=== PATIENT | female | born 1980 | race Two or more races ===

== ENCOUNTER 2017-04-08 17:12 | Emergency (ER) | payer MEDICAID ==
[~2017-04-08] VITALS: Ht 160 cm; Wt 58.1 kg
[2017-04-08 18:40] VITALS: BP 126/82
== END 2017-04-08 21:12 | disposition home or self-care (01) ==
LOC: ER 17:14
DX: S92.902A Unspecified fracture of left foot, initial encounter for closed fracture (principal); W17.89XA Other fall from one level to another, initial encounter; Y93.89 Activity, other specified; Y99.8 Other external cause status; Y92.149 Unspecified place in prison as the place of occurrence of the external cause

== ENCOUNTER 2019-12-09 12:35 | Emergency (ER) | payer MEDICAID ==
[~2019-12-09] VITALS: Ht 154.9 cm; Wt 65.3 kg
[2019-12-09 12:46] VITALS: BP 146/100
== END 2019-12-09 13:49 | disposition home or self-care (01) ==
LOC: ER 12:36
DX: M25.561 Pain in right knee (principal)
CPT/HCPCS: 73562

== ENCOUNTER → 2024-08-01 | Outpatient (CLI) | payer MEDICAID ==
[2024-08-01 16:30] LABS: Urine Bacteria None Seen /hpf (None Seen)
[2024-08-01 16:40] LABS: Basophils # (auto) 0.1 10 ^3/uL (0-0.2); Basophils % (auto) 0.8 % (0.0-2.0); Eosinophils # (auto) 0.4 10 ^3/uL (0-0.8); Eosinophils % (auto) 6.8 % (0.0-7.0); Hematocrit 36.7 % (36.0-46.0); Hemoglobin 12.4 g/dL (12.2-16.2); Lymphocytes # (auto) 2.2 10 ^3/uL (0.4-5.4); Lymphocytes % (auto) 34.3 % (10.0-50.0); Mean Corpuscular Hgb Conc. 33.7 g/dL (32.0-36.0); Mean Corpuscular Volume 85.9 fL (80.0-100.0); Monocytes # (auto) 0.5 10 ^3/uL (0-1.3); Monocytes % (auto) 7.7 % (0.0-12.0); Neutrophils # (auto) 3.3 10 ^3/uL (1.6-8.6); Neutrophils % (auto) 50.4 % (37.0-80.0); Platelet Count (auto) 298 10^3/uL (140-450); Red Blood Cells 4.27 10^6/uL (4.0-5.20); Red Cell Distribution Width 13.2 % (11.8-14.3); White Blood Cell 6.5 10^3/uL (4.4-10.8)
[2024-08-01 16:45] LABS: Urine Blood Negative /uL (Negative); Urine Clarity Clear (Clear); Urine Color Light-Yellow (Yellow); Urine Protein, UAD TRACE (Negative); Urine Specific Gravity 1.025 (1.001-1.035); Urine Urobilinogen Normal (Negative); Urine WBC <1 /hpf (0 - 5)
[2024-08-01 16:57] LABS: Alanine Aminotransferase 18 U/L (7-40); Albumin 4.3 g/dL (3.2-4.8); Alkaline Phosphatase 56 U/L (46-116); Anion Gap 8 (5-15); Aspartate Aminotransferase 15 U/L (13-40); BUN/Creatinine Ratio 14.3 (10.0-20.0); Bilirubin, Total 0.2 mg/dL (0.2-1.0); Blood Urea Nitrogen 11 mg/dL (9-23); Calcium 9.1 mg/dL (8.7-10.4); Carbon Dioxide 25 mmol/L (20-31); Chloride 106 mmol/L (98-107); Glucose 111 mg/dL (74-106); Potassium 3.7 mmol/L (3.5-5.1); Sodium 139 mmol/L (136-145)
== END | disposition home or self-care (01) ==
LOC: LAB 16:11
DX: R73.02 Impaired glucose tolerance (oral) (principal); E55.9 Vitamin D deficiency, unspecified; E78.5 Hyperlipidemia, unspecified
CPT/HCPCS: 36415; 80053; 81001; 82306; 83036; 85025

== ENCOUNTER 2024-12-25 10:22 | Emergency (ER) | payer MEDICAID ==
[~2024-12-25] VITALS: Ht 154.9 cm; Wt 67.3 kg
[2024-12-25] MEDS: ONDANSETRON HCL 4 MG/2 ML VIAL IV ONE (11:10)
[2024-12-25 11:11] VITALS: PULSE 64; RESP 16; O2SAT 97
[2024-12-25] MEDS: KETOROLAC TROMETH 30 MG/ML 1ML VIAL IV ONE (11:11)
[2024-12-25 11:21] LABS: Basophils # (auto) 0.1 10 ^3/uL (0-0.2); Eosinophils # (auto) 0.4 10 ^3/uL (0-0.8); Eosinophils % (auto) 7.5 % (0.0-7.0); Hematocrit 40.9 % (36.0-46.0); Hemoglobin 13.6 g/dL (12.2-16.2); Lymphocytes # (auto) 1.8 10 ^3/uL (0.4-5.4); Lymphocytes % (auto) 33.6 % (10.0-50.0); Mean Corpuscular Hemoglobin 28.5 pg (28.0-32.0); Mean Corpuscular Hgb Conc. 33.4 g/dL (32.0-36.0); Mean Corpuscular Volume 85.4 fL (80.0-100.0); Monocytes # (auto) 0.5 10 ^3/uL (0-1.3); Monocytes % (auto) 8.7 % (0.0-12.0); Neutrophils # (auto) 2.6 10 ^3/uL (1.6-8.6); Neutrophils % (auto) 49.2 % (37.0-80.0); Nucleated Red Blood Cells % 0.1 %; Platelet Count (auto) 403 10^3/uL (140-450); Red Blood Cells 4.79 10^6/uL (4.0-5.20); Red Cell Distribution Width 13.4 % (11.8-14.3); White Blood Cell 5.2 10^3/uL (4.4-10.8)
[2024-12-25 11:26] LABS: Urine Bacteria FEW /hpf (None Seen); Urine Blood 3+ /uL (Negative); Urine Clarity Clear (Clear); Urine Color Light-Brown (Yellow); Urine Protein, UAD TRACE (Negative); Urine Specific Gravity 1.008 (1.001-1.035); Urine Squamous Epithelial Cell FEW /hpf (<5); Urine Urobilinogen Normal (Negative); Urine WBC 9 /HPF (0-5); Urine pH 5.5 (5.0-9.0)
--- NOTE | 2024-12-25 11:28 | ED.PDOC ---
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 Patient reports a pressure sensation at pain sites, states feeling a bump in her left pelvic region. Patient mentions a variety of events these past couple of days that worsened her pelvic pain such as feeling a popping sensation to pelvic region after straining due to constipation, picking up light boxes at work, and severe left lower quadrant pain when moving a tampon. Patient reports a regular menstrual cycle except this month in which cycle came late, started yesterday. Patient was on NuvaRing but is no longer on this control. Patient reports possibly but has not taken any test yet but reports abdominal discomfort is similar to feeling . She denies any fever, chills, dysuria, blood clotting. No medical, surgical history or allergies reported. Chief Complaint: Pelvic Pain Time Seen by MD: 10:41 Reviewed Notes: Nurses Notes, Medications, Allergies Allergies: Coded Allergies: NO KNOWN ALLERGIES (Unverified , 12/07/15) Home Meds Active Scripts Dicyclomine Hcl (BENTYL CAPSULE) 10 Mg Cp, 2 CAP PO Q6HP PRN, #30 CAP 11 Refills prn abdominal pain Prov:LEILA ROLLINS MD 12/25/24 Omeprazole Magnesium (Omeprazole) 20 Mg Tab, 20 MG PO DAILY, #30 TAB Prov:LEILA ROLLINS MD 12/25/24 Ibuprofen Micronized (Ibuprofen) 800 Mg Tab, 800 MG PO Q8HP PRN, #30 TAB prn pain or fever, take with food Prov:LEILA ROLLINS MD 12/25/24 Metronidazole (Flagyl) 500 Mg Tab, 1 TAB PO TID for 10 Days, #30 TAB Prov:LEILA ROLLINS MD 12/25/24 Amoxicillin & Pot Clavulanate (AUGMENTIN TABLET) 875 Mg Tb, 875 MG PO BID for 10 Days, #20 TAB Prov:LEILA ROLLINS MD 12/25/24 Information Source: Patient Mode of Arrival: Ambulatory Timing: Weeks (1) Severity: Moderate Vaginal Discharge: None Vaginal Lesions: None Vaginal Mass: Painful Onset Of Mass/Bleeding: Spontaneous Sexual Activity: Sexually Active Last Consensual [place]: None Control: None Symptoms of Possible : Feels , Nausea Associated Signs and Symptoms: N/V (nausea only ), Other (left sided pelvic pain ) Past Medical History PAST MEDICAL HISTORY: Denies Surgical History: Denies all surgeries TOOL CRIB MANAGER History: No Pertinent TOOL CRIB MANAGER History LMP 12/24/24 Family History Family History: Unknown Social History Smoker: Non-Smoker Alcohol: Denies ETOH Use Drugs: Denies Drug Use Lives In: Home Constitutional: denies: chills, diaphoresis, fatigue, fever, malaise, sweats, weakness, others EENTM: denies: blurred vision, double vision, ear bleeding, ear discharge, ear drainage, ear pain, ear ringing, eye pain, eye redness, hearing loss, mouth pain, mouth swelling, nasal discharge, nose bleeding, nose congestion, nose pain, photophobia, tearing, throat pain, throat swelling, voice changes, others Respiratory: denies: cough, hemoptysis, orthopnea, SOB at rest, shortness of breath, SOB with excertion, stridor, wheezing, others Cardiovascular: denies: chest pain, dizzy spells, diaphoresis, Dyspnea on exertion, edema, irregular heart beat, left arm pain, lightheadedness, palpitations, PND, syncope, others Gastrointestinal: reports: nausea; denies: abdomen distended, abdominal pain, blood streaked bowels, constipated, diarrhea, dysphagia, difficulty swallowing, hematemesis, melena, poor appetite, poor fluid intake, rectal bleeding, rectal pain, vomiting, others Genitourinary: reports: pain (pelvic ); denies: abnormal vagina bleeding, burning, dyspareunia, dysuria, flank pain, frequency, hematuria, incontinence, , vagina discharge, urgency, others Neurological: denies: dizziness, fainting, headache, left sided numbness, left sided weakness, numbness, paresthesia, pre-existing deficit, right sided numbness, right sided weakness, seizure, speech problems, tingling, tremors, weakness, others Musculoskeletal: reports: back pain; denies: gout, joint pain, joint swelling, muscle pain, muscle stiffness, neck pain, others Integumetry: denies: bruises, change in color, change in hair/nails, dryness, laceration, lesions, lumps, rash, wounds, others Allergic/Immunocompromised: denies: Difficulty Healing, Frequent Infections, Hives, Itching, others Hematologic/Lymphatic: denies: anemia, blood clots, easy bleeding, easy bruising, swollen glands, others Endocrine: denies: excessive hunger, excessive sweating, excessive thirst, excessive urination, flushing, intolerance to cold, intolerance to heat, unexplained weight gain, unexplained weight loss, others Psychiatric: denies: anxiety, bipolar disorder, depression, hopeless, panic disorder, schizophrenia, sleepless, suicidal, others All Other Systems: Reviewed and Negative Physical Exam General Appearance: No Apparent Distress HEENT: PERRL/EOMI Neck: Full Range of Motion, Normal Inspection Respiratory: Lungs Clear, No Accessory Muscle Use, No Respiratory Distress, Normal Breath Sounds Cardiovascular: No Edema, No JVD, Regular Rate/Rhythm Breast Exam: Deferred Gastrointestinal: LLQ, Soft, Tenderness Genitalia: Deferred Pelvic: Deferred Rectal: Deferred Extremities: Normal inspection, Normal range of motion, Non-tender, No pedal edema Neurologic: Alert (Oriented x4), Normal Affect, Normal Mood, Other (Ambulatory. No gross focal deficit.) Cerebellar Function: NOT DONE Reflexes: NOT DONE Skin: Dry, Normal Color, Warm Lymphatic: NOT DONE Was a procedure done? Was a procedure done?: No Differential Diagnosis (TOOL CRIB MANAGER) Vaginal Bleeding: - Incomplete, - Inevitable, - Missed, - Threatened, Cervicitis, Ectopic , Menstrual Bleeding, PID, UTI, Vaginitis Comments Constipation, UTI, diverticulitis, colitis, kidney stone, among others X-Ray, Labs, Meds, VS Vital Signs Date Time Temp Pulse Resp B/P (MAP) Pulse Ox O2 Delivery O2 Flow Rate FiO2 12/25/24 11:11 64 16 97 Room Air* 0 21 12/25/24 11:03 64 15 97 Room Air 12/25/24 11:03 98.0 64 15 127/71 (89) 97 98.0 12/25/24 10:32 98.6 62 16 133/66 (88) 96 Lab Test 12/25/24 11:02 12/25/24 10:41 Range/Units White Blood Count 5.2 4.4-10.8 10^3/uL Red Blood Count 4.79 4.0-5.20 10^6/uL Hemoglobin 13.6 12.2-16.2 g/dL Hematocrit 40.9 36.0-46.0 % Mean Corpuscular Volume 85.4 80.0-100.0 fL Mean Corpuscular Hemoglobin 28.5 28.0-32.0 pg Mean Corpuscular Hemoglobin Concent 33.4 32.0-36.0 g/dL Red Cell Distribution Width 13.4 11.8-14.3 % Platelet Count 403 140-450 10^3/uL Mean Platelet Volume 6.3 L 6.9-10.8 fL Neutrophils (%) (Auto) 49.2 37.0-80.0 % Lymphocytes (%) (Auto) 33.6 10.0-50.0 % Monocytes (%) (Auto) 8.7 0.0-12.0 % Eosinophils (%) (Auto) 7.5 H 0.0-7.0 % Basophils (%) (Auto) 1.0 0.0-2.0 % Neutrophils # (Auto) 2.6 1.6-8.6 10 ^3/uL Lymphocytes # (Auto) 1.8 0.4-5.4 10 ^3/uL Monocytes # (Auto) 0.5 0-1.3 10 ^3/uL Eosinophils # (Auto) 0.4 0-0.8 10 ^3/uL Basophils # (Auto) 0.1 0-0.2 10 ^3/uL Nucleated Red Blood Cells 0.1 % Sodium Level 138 136-145 mmol/L Potassium Level 3.7 3.5-5.1 mmol/L Chloride Level 106 98-107 mmol/L Carbon Dioxide Level 23 20-31 mmol/L Anion Gap 9 5-15 Blood Urea Nitrogen 14 9-23 mg/dL Creatinine 0.75 0.550-1.02 mg/dL Glomerular Filtration Rate Calc 99 >90 mL/min BUN/Creatinine Ratio 18.7 10.0-20.0 Serum Glucose 91 74-106 mg/dL Calcium Level 9.2 8.7-10.4 mg/dL Beta HCG, Quantitative 0.1 L 1.5-4.2 mIU/mL Urine Color Light-brown Yellow Urine Clarity Clear Clear Urine pH 5.5 5.0-9.0 Urine Specific [place] 1.008 1.001-1.035 Urine Protein Trace H Negative Urine Ketones Negative Negative Urine Blood 3+ H Negative /uL Urine Nitrite Negative Negative Urine Bilirubin Negative Negative Urine Urobilinogen Normal Negative mg/dL Urine Leukocyte Esterase Negative Negative /uL Urine RBC 541 0 - 4 /hpf Urine Microscopic WBC 9 H 0-5 /HPF Urine Squamous Epithelial Cells Few <5 /hpf Urine Bacteria Few H None Seen /hpf Urine Glucose Normal Normal mg/dL Current Medications Medications (Trade) Dose Ordered Sig/Sahnice Route Start Time Stop Time Status Last Admin Ketorolac Tromethamine (Toradol Injection) 30 mg ONCE ONCE IV 12/25/24 11:00 12/25/24 11:01 DC 12/25/24 11:11 Ondansetron HCl (Zofran) 4 mg ONCE ONCE IV 12/25/24 11:00 12/25/24 11:01 DC 12/25/24 11:10 [place] [address] Ph: [phone] DIAGNOSTIC IMAGING Diagnostic Imaging Report : [id number] Signed PATIENT: THOMAS PEREZ ACCT: [id number] UNIT: [id number] : 1980 LOC: ER ROOM / BED: / AGE / SEX: 44 / F ADM STATUS: REG ER SERVICE 1053 ORDERING PHYSICIAN: LEILA ROLLINS MD PROCEDURE(s): PELUS - PELVIC REASON: L pelvic pain r/o ov cyst/torsion ORDER NUMBER(s): [id number], ACCESSION NUMBER(s): [id number] EXAM: US PELVIC HISTORY: L pelvic pain r/o ov cyst/torsion COMPARISON: None TECHNIQUE: Transabdominal pelvic ultrasound examination was performed. FINDINGS: The uterus measures 8.9 x 4.0 x 4.8 cm. The uterus is anteverted. The endometrium measures 7.4 mm in thickness. The right ovary measures 2.4 x 2.0 x 1.3 cm. The left ovary measures 2.5 x 2.0 x 1.5 cm. Both ovaries are normal in appearance and demonstrate normal color Doppler blood flow. No free fluid is identified in the pelvis. IMPRESSION: Normal sonographic appearance of the uterus and ovaries. ATED BY: SEBASTIAN HERNANDEZ MD DICTATED DATE/TIME: 12/25/24 1141 SIGNED BY: SEBASTIAN HERNANDEZ MD SIGNED DATE/TIME: 12/25/24 1141 CC: PROCEDURE(s): ABPL - CT AB PEL WO CON-NO ORAL OR IV REASON: LLQ pain ORDER NUMBER(s): [id number], ACCESSION NUMBER(s): [id number] Exam: CT CT AB PEL WO CON-NO ORAL OR IV History: LLQ pain Comparison Study: Pelvic ultrasound 12/25/2024 Technique: Multidetector spiral CT of the abdomen was performed from lung bases to pubic symphysis. Imaging was performed without IV contrast. Axial, coronal and sagittal multiplanar reformats were obtained from the axial data set by the technologist. Radiation Dose : 1. Abdomen/Pelvis: CTDIvol 7.21 mGy, DLP 360.81 mGy*cm. Findings: Evaluation of solid organs is limited due to lack of intravenous contrast use. Lung Bases: No acute or significant lung base finding. Normal heart size. No pleural or pericardial effusion. Liver: The liver is normal in size. No focal lesions. Gallbladder and Biliary Tree: Unremarkable Spleen: Unremarkable Pancreas: The pancreas is grossly normal in appearance. Adrenal Glands: 1.2 cm left adrenal nodule that attenuates at -16 Hounsfield units, consistent with an adenoma. Kidneys: Kidneys are grossly normal without calculi or hydronephrosis. Bladder: Grossly unremarkable for degree of distention. Bowel: Wall thickening in the stomach is likely due to poor distention. Small bowel and colon are normal in caliber and distribution. There is wall thickening in the sigmoid colon and rectum. Normal appendix is visualized in the right lower quadrant without findings of appendicitis. Ascites: Absent Lymphadenopathy: No mesenteric, retroperitoneal or periportal lymphadenopathy. Abdominal Wall and Mesentery: Unremarkable. Vasculature: The visualized abdominal aorta is normal in size and caliber. Evaluation of abdominal and pelvic vessels is limited due to lack of intravenous contrast. Pelvic Organs: There is poorly defined hypodensity in the region of the cervix which is favored to represent beam hardening artifact due to an external m etallic density anterior to the pelvis. Uterus is otherwise unremarkable. Minimal gas in the vagina. Musculoskeletal: No aggressive focal bony lesions, acute fractures or dislocation. Mild degenerative disc change and disc vacuum phenomenon at L5-S1. IMPRESSION: Evaluation is limited due to lack of intravenous contrast. Wall thickening in the sigmoid colon and rectum could be due to poor distention or colitis/proctitis. No significant diverticular disease. Small left adrenal adenoma. Appendix is normal. No bowel obstruction. No evidence of renal calculi or hydronephrosis. Radiation optimization: All CT scans at this facility use at least one of these dose optimization techniques: automated exposure control mA and/or kV adjustment per patient size (includes targeted exams where dose is matched to clinical indication) or iterative reconstruction. X-Ray, Labs, Meds, VS Comment 44-year-old female with no significant past medical history complaining of left lower quadrant abdominal/pelvic pain Vitals unremarkable Exam remarkable for left lower quadrant tenderness to palpation. Nontender to percussion. No rebound or guarding. Rhythm strip independently interpreted by me: Sinus rhythm, rate 62, no ectopy. Pelvic ultrasound: IMPRESSION: Normal sonographic appearance of the uterus and ovaries. CT abdomen and pelvis IMPRESSION: Evaluation is limited due to lack of intravenous contrast. Wall thickening in the sigmoid colon and rectum could be due to poor distention or colitis/proctitis. No significant diverticular disease. Small left adrenal adenoma. Appendix is normal. No bowel obstruction. No evidence of renal calculi or hydronephrosis. CBC, metabolic panel, hCG unremarkable for any abnormality of acute significance UA abnormal consistent with possible UTI Patient treated with the following in the ED: Toradol 30 mg IV, Zofran 4 mg IV, Rocephin 1 g IV, Flagyl 500 mg IV On re-evaluation, patient states pain has improved. Vitals are stable. Repeat abdominal exam is benign. Hospitalization was considered, however patient had rapid improvement of symptoms with treatment in the ED, and patient stated she did not want to be hospitalized and would prefer to go home with oral antibiotics and follow-up with her primary physician. She appears stable for discharge with close follow-up with her primary doctor. Rx Augmentin, Flagyl, ibuprofen, Bentyl, omeprazole Time of 1ST Reevaluation: 11:19 Reevaluation 1ST: Unchanged Time of 2ND Reevaluation: 12:53 Reevaluation 2ND: Improved Patient Education/Counseling: Diagnosis, Treatment, Prognosis Family Education/Counseling: No Family Present Departure 1 Departure Time of Disposition: 12:54 Impression: Primary Impression: Proctocolitis Disposition: HOME / SELF CARE / HOMELESS Condition: Stable Additional Instructions: Your blood tests were unremarkable. Your CT scan showed colitis/proctitis, which is inflammation of your intestine, usually due to an infection. CT report is below. I have prescribed pain medication and antibiotics. Follow-up with your primary doctor in 1-2 days. Return to ER for fever or persistent/worsening symptoms. [place] [address] Ph: [phone] DIAGNOSTIC IMAGING Diagnostic Imaging Report : [id number] Signed PATIENT: THOMAS PEREZ ACCT: [id number] UNIT: [id number] : 1980 LOC: ER ROOM / BED: / AGE / SEX: 44 / F ADM STATUS: REG ER SERVICE 1053 ORDERING PHYSICIAN: LEILA ROLLINS MD PROCEDURE(s): ABPL - CT AB PEL WO CON-NO ORAL OR IV REASON: LLQ pain ORDER NUMBER(s): [id number], ACCESSION NUMBER(s): [id number] Exam: CT CT AB PEL WO CON-NO ORAL OR IV History: LLQ pain Comparison Study: Pelvic ultrasound 12/25/2024 Technique: Multidetector spiral CT of the abdomen was performed from lung bases to pubic symphysis. Imaging was performed without IV contrast. Axial, coronal and sagittal multiplanar reformats were obtained from the axial data set by the technologist. Radiation Dose : 1. Abdomen/Pelvis: CTDIvol 7.21 mGy, DLP 360.81 mGy*cm. Findings: Evaluation of solid organs is limited due to lack of intravenous contrast use. Lung Bases: No acute or significant lung base finding. Normal heart size. No pleural or pericardial effusion. Liver: The liver is normal in size. No focal lesions. Gallbladder and Biliary Tree: Unremarkable Spleen: Unremarkable Pancreas: The pancreas is grossly normal in appearance. Adrenal Glands: 1.2 cm left adrenal nodule that attenuates at -16 Hounsfield un its, consistent with an adenoma. Kidneys: Kidneys are grossly normal without calculi or hydronephrosis. Bladder: Grossly unremarkable for degree of distention. Bowel: Wall thickening in the stomach is likely due to poor distention. Small bowel and colon are normal in caliber and distribution. There is wall thickening in the sigmoid colon and rectum. Normal appendix is visualized in the right lower quadrant without findings of appendicitis. Ascites: Absent Lymphadenopathy: No mesenteric, retroperitoneal or periportal lymphadenopathy. Abdominal Wall and Mesentery: Unremarkable. Vasculature: The visualized abdominal aorta is normal in size and caliber. Evaluation of abdominal and pelvic vessels is limited due to lack of intravenous contrast. Pelvic Organs: There is poorly defined hypodensity in the region of the cervix which is favored to represent beam hardening artifact due to an external metallic density anterior to the pelvis. Uterus is otherwise unremarkable. Minimal gas in the vagina. Musculoskeletal: No aggressive focal bony lesions, acute fractures or dislocation. Mild degenerative disc change and disc vacuum phenomenon at L5-S1. IMPRESSION: Evaluation is limited due to lack of intravenous contrast. Wall thickening in the sigmoid colon and rectum could be due to poor distention or colitis/proctitis. No significant diverticular disease. Small left adrenal adenoma. Appendix is normal. No bowel obstruction. No evidence of renal calculi or hydronephrosis. Radiation optimization: All CT scans at this facility use at least one of these dose optimization techniques: automated exposure control mA and/or kV adjus tment per patient size (includes targeted exams where dose is matched to clinical indication) or iterative reconstruction. ATED BY: LUIS ANTONIO ALEXANDRA DO DICTATED DATE/TIME: 12/25/24 1241 e-Prescriptions Dicyclomine Hcl (BENTYL CAPSULE) 10 Mg Cp 2 CAP PO Q6HP PRN, #30 CAP 11 Refills prn abdominal pain Prov: LEILA ROLLINS MD 12/25/24 Omeprazole Magnesium (Omeprazole) 20 Mg Tab 20 MG PO DAILY, #30 TAB Prov: LEILA ROLLINS MD 12/25/24 Ibuprofen Micronized (Ibuprofen) 800 Mg Tab 800 MG PO Q8HP PRN, #30 TAB prn pain or fever, take with food Prov: LEILA ROLLINS MD 12/25/24 Metronidazole (Flagyl) 500 Mg Tab 1 TAB PO TID for 10 Days, #30 TAB Prov: LEILA ROLLINS MD 12/25/24 Amoxicillin & Pot Clavulanate (AUGMENTIN TABLET) 875 Mg Tb 875 MG PO BID for 10 Days, #20 TAB Prov: LEILA ROLLINS MD 12/25/24 Discharged With: Self Comments OFF WORK x 1 WEEK Critical Care Note Critical Care Time?: No Stability Stability form required: No Heart Score Heart Score: Heart Score Response (Comments) Value History N/A 0 EKG N/A 0 Age N/A 0 Risk Factors N/A 0 Troponin N/A 0 Total 0 I personally scribed for LEILA ROLLINS MD ([email or web address]) on 12/25/24 at 11:28. Electronically submitted by Jahaira Kelly ([facility]). I personally scribed for LEILA ROLLINS MD ([email or web address]) on 12/25/24 at 11:52. Electronically submitted by Jahaira Kelly ([facility]). LEILA ROLLINS MD Dec 25, 2024 11:28
[2024-12-25 11:31] LABS: Chloride 106 mmol/L (98-107); Potassium 3.7 mmol/L (3.5-5.1); Sodium 138 mmol/L (136-145)
[2024-12-25 11:32] LABS: Anion Gap 9 (5-15); Calcium 9.2 mg/dL (8.7-10.4); Carbon Dioxide 23 mmol/L (20-31)
[2024-12-25 11:37] LABS: BUN/Creatinine Ratio 18.7 (10.0-20.0); Blood Urea Nitrogen 14 mg/dL (9-23); Glucose 91 mg/dL (74-106)
--- NOTE | 2024-12-25 11:44 | DVH ---
EXAM: US PELVIC HISTORY: L pelvic pain r/o ov cyst/torsion COMPARISON: None TECHNIQUE: Transabdominal pelvic ultrasound examination was performed. FINDINGS: The uterus measures 8.9 x 4.0 x 4.8 cm. The uterus is anteverted. The endometrium measures 7.4 mm in thickness. The right ovary measures 2.4 x 2.0 x 1.3 cm. The left ovary measures 2.5 x 2.0 x 1.5 cm. Both ovaries are normal in appearance and demonstrate normal color Doppler blood flow. No free flu id is identified in the pelvis. IMPRESSION: Normal sonographic appearance of the uterus and ovaries.
--- NOTE | 2024-12-25 12:44 | DVH ---
Exam: CT CT AB PEL WO CON-NO ORAL OR IV History: LLQ pain Comparison Study: Pelvic ultrasound 12/25/2024 Technique: Multidetector spiral CT of the abdomen was performed from lung bases to pubic symphysis. Imaging was performed without IV contrast. Axial, coronal and sagittal multiplanar reformats were ob tained from the axial data set by the technologist. Radiation Dose : 1. Abdomen/Pelvis: CTDIvol 7.21 mGy, DLP 360.81 mGy*cm. Findings: Evaluation of solid organs is limited due to lack of intravenous contrast use. Lung Bases: No acute or significant lung base finding. Normal heart size. No pleural or pericardial effusion. Liver: The liver is normal in size. No focal lesions. Gallbladder and Biliary Tree: Unremarkable Spleen: Unremarkable Pancreas: The pancreas is grossly normal in appearance. Adrenal Glands: 1.2 cm left adrenal nodule that attenuates at -16 Hounsfield units, consistent with a n adenoma. Kidneys: Kidneys are grossly normal without calculi or hydronephrosis. Bladder: Grossly unremarkable for degree of distention. Bowel: Wall thickening in the stomach is likely due to poor distention. Small bowel and colon are nor mal in caliber and distribution. There is wall thickening in the sigmoid colon and rectum. Normal marilyn endix is visualized in the right lower quadrant without findings of appendicitis. Ascites: Absent Lymphadenopathy: No mesenteric, retroperitoneal or periportal lymphadenopathy. Abdominal Wall and Mesentery: Unremarkable. Vasculature: The visualized abdominal aorta is normal in size and caliber. Evaluation of abdominal a nd pelvic vessels is limited due to lack of intravenous contrast. Pelvic Organs: There is poorly defined hypodensity in the region of the cervix which is favored to re present beam hardening artifact due to an external metallic density anterior to the pelvis. Uterus is otherwise unremarkable. Minimal gas in the vagina. Musculoskeletal: No aggressive focal bony lesions, acute fractures or dislocation. Mild degenerative disc change and disc vacuum phenomenon at L5-S1. IMPRESSION: Evaluation is limited due to lack of intravenous contrast. Wall thickening in the sigmoid colon and rectum could be due to poor distention or colitis/proctitis. No significant diverticular disease. Small left adrenal adenoma. Appendix is normal. No bowel obstruction. No evidence of renal calculi or hydronephrosis. Radiation optimization: All CT scans at this facility use at least one of these dose optimization dari hniques: automated exposure control mA and/or kV adjustment per patient size (includes targeted exam s where dose is matched to clinical indication) or iterative reconstruction.
[2024-12-25] MEDS ORDERED: OMEP-434 PO (12:58)
[2024-12-25] MEDS ORDERED: AUG875T PO (12:58)
[2024-12-25] MEDS ORDERED: IBUP-1455 PO (12:58)
[2024-12-25] MEDS ORDERED: DICY10CA PO (12:58)
[2024-12-25] MEDS ORDERED: METR-344 PO (12:58)
[2024-12-25] MEDS: metroNIDAZOLE 500 MG TAB PO ONE (13:08)
[2024-12-25] MEDS: cefTRIAXone 1GM/50ML D5W 50 ML IV ONE (13:08)
[2024-12-25 13:11] VITALS: BP 130/60; PULSE 52; RESP 17; TEMP 98.2; O2SAT 98
== END 2024-12-25 14:18 | disposition home or self-care (01) ==
LOC: ER 10:22
DX: K51.30 Ulcerative (chronic) rectosigmoiditis without complications (principal)
CPT/HCPCS: 36415; 74176; 76856; 80048; 81001; 84702; 85025; 96365; 96375; 99285; J0696; J1885; J2405

== ENCOUNTER → 2025-01-30 | Outpatient (CLI) | payer MEDICAID ==
[~2025-01-30] MED LIST: AUG875T PO; DICY10CA PO; IBUP-1455 PO; METR-344 PO; OMEP-434 PO
[2025-01-30 09:07] LABS: Urine Bacteria None Seen /hpf (None Seen)
[2025-01-30 09:37] LABS: Urine Blood Negative /uL (Negative); Urine Clarity Clear (Clear); Urine Color Light-Yellow (Yellow); Urine Protein, UAD Negative (Negative); Urine Specific Gravity 1.019 (1.001-1.035); Urine Squamous Epithelial Cell FEW /hpf (<5); Urine Urobilinogen Normal (Negative); Urine WBC < 1 /HPF (0-5); Urine pH 7.5 (5.0-9.0)
[2025-01-30 09:42] LABS: Basophils # (auto) 0.1 10 ^3/uL (0-0.2); Basophils % (auto) 1.2 % (0.0-2.0); Eosinophils # (auto) 0.5 10 ^3/uL (0-0.8); Eosinophils % (auto) 9.8 % (0.0-7.0); Hematocrit 42.8 % (36.0-46.0); Hemoglobin 14.5 g/dL (12.2-16.2); Lymphocytes % (auto) 39.6 % (10.0-50.0); Mean Corpuscular Hemoglobin 29.2 pg (28.0-32.0); Mean Corpuscular Hgb Conc. 33.8 g/dL (32.0-36.0); Mean Corpuscular Volume 86.3 fL (80.0-100.0); Monocytes # (auto) 0.3 10 ^3/uL (0-1.3); Monocytes % (auto) 6.2 % (0.0-12.0); Neutrophils # (auto) 2.2 10 ^3/uL (1.6-8.6); Neutrophils % (auto) 43.2 % (37.0-80.0); Nucleated Red Blood Cells % 0.1 %; Platelet Count (auto) 368 10^3/uL (140-450); Red Blood Cells 4.96 10^6/uL (4.0-5.20); Red Cell Distribution Width 13.5 % (11.8-14.3); White Blood Cell 5.1 10^3/uL (4.4-10.8)
[2025-01-30 09:47] LABS: Alanine Aminotransferase 21 U/L (7-40); Alkaline Phosphatase 56 U/L (46-116); Anion Gap 8 (5-15); BUN/Creatinine Ratio 17.1 (10.0-20.0); Blood Urea Nitrogen 13 mg/dL (9-23); Calcium 9.9 mg/dL (8.7-10.4); Carbon Dioxide 27 mmol/L (20-31); Chloride 103 mmol/L (98-107); Glucose 104 mg/dL (74-106); Potassium 4.2 mmol/L (3.5-5.1); Sodium 138 mmol/L (136-145); Total Protein 7.7 g/dL (5.7-8.2)
[2025-01-30 09:48] LABS: Aspartate Aminotransferase 19 U/L (13-40); Bilirubin, Direct 0.1 mg/dL (<0.3); HDL Cholesterol 57 mg/dL (40-59)
[2025-01-30 09:49] LABS: Bilirubin, Total 0.5 mg/dL (0.2-1.0)
[2025-01-30 09:57] LABS: Albumin 4.9 g/dL (3.2-4.8); Cholesterol 236 mg/dL (< 200); LDL Cholesterol 156 mg/dL (< 100); Triglycerides 256 mg/dL (< 150)
== END | disposition home or self-care (01) ==
LOC: LAB 08:53
PROVIDERS: ATTEND Nurse Practitioner Family
DX: Z11.3 Encounter for screening for infections with a predominantly sexual mode of transmission (principal); Z12.11 Encounter for screening for malignant neoplasm of colon; E55.9 Vitamin D deficiency, unspecified; E78.5 Hyperlipidemia, unspecified; R10.32 Left lower quadrant pain; Z00.01 Encounter for general adult medical examination with abnormal findings
CPT/HCPCS: 36415; 80053; 80061; 80076; 81001; 82306; 84443; 85025

== ENCOUNTER 2025-07-24 09:01 | Outpatient (CLI) | payer MEDICAID ==
[2025-07-24 09:26] LABS: Hematocrit 38.6 % (36.0-46.0); Hemoglobin 13.6 g/dL (12.2-16.2); Mean Corpuscular Hemoglobin 29.9 pg (28.0-32.0); Mean Corpuscular Volume 85.0 fL (80.0-100.0); Nucleated Red Blood Cells % 0.1 %
[2025-07-24 09:30] LABS: Urine Protein, UAD Negative (Negative)
[2025-07-24 09:53] LABS: Alanine Aminotransferase 18 U/L (7-40); Alkaline Phosphatase 47 U/L (46-116); Chloride 105 mmol/L (98-107); Glucose 101 mg/dL (74-106); Potassium 3.9 mmol/L (3.5-5.1)
[2025-07-24 09:54] LABS: Albumin 4.3 g/dL (3.2-4.8); Calcium 8.6 mg/dL (8.7-10.4); Sodium 139 mmol/L (136-145); Total Protein 7.2 g/dL (5.7-8.2); Triglycerides 174 mg/dL (< 150)
[2025-07-24 09:55] LABS: Bilirubin, Total 0.4 mg/dL (0.2-1.0); Cholesterol 197 mg/dL (< 200); HDL Cholesterol 51 mg/dL (40-59)
[2025-07-24 10:45] LABS: Anion Gap 11 (5-15); BUN/Creatinine Ratio 13.3 (10.0-20.0); Blood Urea Nitrogen 10 mg/dL (9-23); Carbon Dioxide 23 mmol/L (20-31)
== END 2025-07-24 17:00 | disposition home or self-care (01) ==
LOC: LAB 09:01
PROVIDERS: ATTEND Nurse Practitioner Family
DX: E78.5 Hyperlipidemia, unspecified (principal); E55.9 Vitamin D deficiency, unspecified
CPT/HCPCS: 36415; 80053; 80061; 81001; 82306; 82785; 83036; 84443; 85025; 86003

== ENCOUNTER → 2025-09-28 | Outpatient (CLI) | payer MEDICAID ==
[2025-09-28 09:44] LABS: Hematocrit 42.2 % (36.0-46.0); Hemoglobin 14.1 g/dL (12.2-16.2); Mean Corpuscular Hemoglobin 28.9 pg (28.0-32.0); Mean Corpuscular Volume 86.4 fL (80.0-100.0); Nucleated Red Blood Cells % 0.1 %
[2025-09-28 10:12] LABS: Alanine Aminotransferase 21 U/L (7-40); Albumin 4.5 g/dL (3.2-4.8); Alkaline Phosphatase 54 U/L (46-116); Anion Gap 11 (5-15); BUN/Creatinine Ratio 10.1 (10.0-20.0); Calcium 9.3 mg/dL (8.7-10.4); Carbon Dioxide 26 mmol/L (20-31); Chloride 105 mmol/L (98-107); Glucose 99 mg/dL (74-106); Potassium 4.2 mmol/L (3.5-5.1); Sodium 142 mmol/L (136-145); Total Protein 7.7 g/dL (5.7-8.2)
[2025-09-28 10:13] LABS: Bilirubin, Total 0.5 mg/dL (0.2-1.0); HDL Cholesterol 54 mg/dL (40-59)
[2025-09-28 10:33] LABS: Blood Urea Nitrogen 8 mg/dL (9-23); Cholesterol 215 mg/dL (< 200); Triglycerides 214 mg/dL (< 150)
== END | disposition home or self-care (01) ==
LOC: LAB 09:10
PROVIDERS: ATTEND Nurse Practitioner Family
DX: E55.9 Vitamin D deficiency, unspecified (principal); E78.5 Hyperlipidemia, unspecified; R73.9 Hyperglycemia, unspecified; Z12.11 Encounter for screening for malignant neoplasm of colon
CPT/HCPCS: 36415; 80053; 80061; 82306; 83036; 84443; 85025